=== PATIENT | female | born 1985 | race Caucasian/White ===

== ENCOUNTER 2021-09-06 14:30 | Inpatient (IN) ==
--- NOTE | 2021-09-06 15:25 | Anesthesiology Consultation ---
Date of Service September 06, 2021 Assessment & Plan (1) Encounter for pre-operative examination: Chart Review Chart Review: order entry initiated Per nursing assessment 09/06/2021, patient denies any recent travel. Wears mask in public. No known Covid positive exposures or Covid related symptoms. Did have positive home Covid test 07/18/21 (had sore throat, head cold, fatigue- still has hoarseness). Pt is fully vaccinated for Covid. Preop Covid testing 09/10/21= will await results (if Covid test positive- will need to be treated as PUI/Covid positive since home tests not accepted) Consults Requested none ASA [id number] Proposed Anesthesia Anesthesia Type: Spinal Risk / Benefits Reviewed With: PT / POA / Parent / Guardian, Accepts Plan and Informed Consent Obtained History Surgery Operation Date: 09/13/21 08:55 Proposed Procedures p Repear Section - Malcom Jones MD Height/Weight Height: 5 ft 5 in Weight: 102.058 kg Allergies Allergy/AdvReac Type Severity Reaction Status Date / Time strawberry Allergy Unknown Hives Verified 09/06/21 12:08 Medications Home Medications Medication Instructions Recorded Confirmed Last Taken dextroamphetamine-amphetamine 20 20 mg PO QAM 03/23/20 09/06/21 08/31/20 mg tablet montelukast 10 mg tablet 10 mg PO QAM 03/23/20 09/06/21 Unknown ascorbic acid (vitamin C) 250 mg 250 mg PO BID 09/06/21 09/06/21 Unknown tablet (Vitamin C) calcium 500 mg tablet 500 mg PO QAM 09/06/21 09/06/21 Unknown docusate sodium 100 mg capsule 100 mg PO BID 09/06/21 09/06/21 Unknown (Stool Softener) ferrous fumarate 55 mg PO BID 09/06/21 09/06/21 Unknown fluticasone propionate 44 2 puff INHALATION QAM 09/06/21 09/06/21 Unknown mcg/actuation HFA aerosol inhaler (Flovent HFA) fluticasone propionate 50 2 spray INTRANASAL BID 09/06/21 09/06/21 Unknown mcg/actuation nasal spray,suspension loratadine 10 mg tablet 10 mg PO QPM 09/06/21 09/06/21 Unknown [id number] 1 mg 1 tab PO QAM 09/06/21 09/06/21 Unknown tablet NPO Date Last Intake of Fluids: 09/06/21 Time Last Intake of Fluids: 11:00 Date Last Intake of Solids: 09/06/21 Time Last Intake of Solids: 11:00 Past Medical History Medical History Anemia Asthma Hypertension during F/U APPT QUINTIN ANDRADE 09/06/21 Narcolepsy REASON FOR ADDERALL Temporomandibular joint disorder BILAT -NO LOCKING Exercise / Class Metabolic Activity II 4-5 Yardwork/Stairs/Walk up hill Past Family History Family History Grandfather (Paternal) Family history of diabetes mellitus Past Surgical History Surgical History H/O wisdom tooth extraction History of appendectomy Past Anesthesia History No Hx of Anesthesia Complications and No Family Hx of Anesthesia Complications History of PONV No Hx of PONV and No Hx of Motion Sickness Social History Smoking Status: Former smoker Smoking cigarettes per day: NOT -20 CIGS A DAY-LAST TIME END 12/2020 Do You Dip or Chew Tobacco: No Hx Alcohol Use: Yes (NON STATE) Alcohol type: beer Hx Substance Use: No Physical Exam Vital Signs Last Vital Signs Temp 98.1 F 09/06/21 15:13 Pulse 90 09/06/21 15:36 Resp 20 09/06/21 15:13 BP 131/74 09/06/21 15:36 ENMT Mouth: no dentition abnormality Thyromental Distance: > or= 3.5 Finger Breadths Mallampati Class: II Neck normal visual inspection Respiratory normal respiratory effort Auscultation: lungs clear to auscultation bilaterally Cardiovascular Rate/Rhythm: regular rate and regular rhythm Lab Results Anesthesia Preop Results Results Anesthesia Widget: WBC 16.46 K/uL (4.8-10.8) H 09/06/21 Hgb 12.9 g/dL (12.0-16.0) 09/06/21 Hct 38.8 % (37-47) 09/06/21 Plt 327 K/uL (130-400) 09/06/21 Na 135 mmol/L (136-145) L 01/21/22 K 3.5 mmol/L (3.5-5.1) 08/12/21 Cl 103 mmol/L (98-107) 08/12/21 CO2 23 mmol/L (21-32) 08/12/21 BUN 8 mg/dl (6-23) 08/12/21 Creat 0.50 mg/dl (0.6-1.2) L 08/12/21 Glucose Level 77 mg/dl (70-99(Fasting)) 08/12/21 Urine Color Yellow 08/12/21 Urine Appearance Clear (Clear) 08/12/21 Urine pH 5.0 (4.5-7.5) 08/12/21 Urine Specific Brewster 1.011 (1.000-1.030) 08/12/21 Urine Protein Negative (Negative) 08/12/21 Urine Glucose (UA) Negative (Negative) 08/12/21 Urine Ketones 3+ (Negative) H 08/12/21 Urine Blood Negative (Negative) 08/12/21 Urine Nitrite Negative (Negative) 08/12/21 Urine Bilirubin Negative (Negative) 08/12/21 Urine Urobilinogen Negative (Negative) 08/12/21 Urine Leukocyte Esterase Negative (Negative) 08/12/21 Testing Laboratory Results 09/06/21 15:50 Repeat CBC 08/15/21= WBC: 15.74 (leukocytosis noted since 01/2021 per [facility]) H/H: 12.2/37.3: PLATELETS: 323
--- NOTE | 2021-09-06 15:58 | History & Physical Report ---
Date of Service September 06, 2021 Assessment & Plan (1) Breech presentation: (2) Gestational hypertension without significant proteinuria during in third trimester, antepartum: Admission and Anticipated Discharge Date Admission Date: September 06, 2021 History of Present Illness Chief Complaint: Breech presentation Primary Care Provider: Lester Oneill MD 36 F [id number] at 38.3 weeks admitted to L&D from office for breech presentation and gestational hypertension. Patient denies headache, visual disturbances or any swelling in extremities or face. Had Covid in July. Allergies Allergy/AdvReac Type Severity Reaction Status Date / Time strawberry Allergy Unknown Hives Verified 09/06/21 12:08 Home Medications Medication Instructions Recorded Confirmed Type dextroamphetamine-amphetamine 20 20 mg PO QAM 03/23/20 09/06/21 History mg tablet montelukast 10 mg tablet 10 mg PO QAM 03/23/20 09/06/21 History ascorbic acid (vitamin C) 250 mg 250 mg PO BID 09/06/21 09/06/21 History tablet (Vitamin C) calcium 500 mg tablet 500 mg PO QAM 09/06/21 09/06/21 History docusate sodium 100 mg capsule 100 mg PO BID 09/06/21 09/06/21 History (Stool Softener) ferrous fumarate 55 mg PO BID 09/06/21 09/06/21 History fluticasone propionate 44 2 puff INHALATION QAM 09/06/21 09/06/21 History mcg/actuation HFA aerosol inhaler (Flovent HFA) fluticasone propionate 50 2 spray INTRANASAL BID 09/06/21 09/06/21 History mcg/actuation nasal spray,suspension loratadine 10 mg tablet 10 mg PO QPM 09/06/21 09/06/21 History [id number]-[id number]-As-FA 1 mg 1 tab PO QAM 09/06/21 09/06/21 History tablet Patient History Medical History Anemia Asthma Hypertension during F/U APPT QUINTIN ANDRADE 09/06/21 Narcolepsy REASON FOR ADDERALL Temporomandibular joint disorder BILAT -NO LOCKING Surgical History H/O wisdom tooth extraction History of appendectomy Family History Grandfather (Paternal) Family history of diabetes mellitus Social History Smoking Status: Former smoker Tobacco Type: Cigarettes Cigarettes Per Day: NOT -20 CIGS A DAY-LAST TIME END 12/2020; Second Hand Exposure: No; Do You Dip or Chew Tobacco: No; Hx Alcohol Use: Yes (NON STATE) Alcohol type: beer Hx Substance Use: No Preferred Language: Grenadian Communication Ability: Effective Manager Of Disaster Recovery Required: No Beliefs That Will Affect Care: None marital status: Current Living Situation: Spouse current occupational status: employed Other Information That Helps Us Care for You: No Feels Safe at Home: Yes Safety Concerns: Feels Safe At This Time Assistive Devices: None Assistive Devices Comment: CROWN MOLAR OB History breech HR INTERNSHIP History SAB x1 Review of Systems All systems reviewed & are unremarkable except as noted in HPI & below Physical Exam Constitutional: WD/WN, vitals as above + obese and comfortable Respiratory: normal respiratory effort, lungs clear to auscultation Cardiovascular: RRR, no murmur, no edema Skin: no rashes, warm and dry Neurologic: patellar DTR's 2+ bilat, sensation intact Psychiatric: A+Ox3, euthymic affect Genitourinary: no vaginal lesions, no adnexal mass normal external appearance OB Exam Abdomen: + fundal height and + breech OB Exam Monitor Tracing: + external FHT monitor used, + external uterine monitor used, + category I and + normal FHT variability bedside ultrasound confirms breech presentation Results & Data ([facility]) Vital Signs (Past 12 Hours) Vital Signs Temp Pulse Resp BP 09/06/21 15:36 90 131/74 09/06/21 15:13 36.7 C 20 09/06/21 15:06 88 138/78 09/06/21 15:03 92 H 143/85 H 09/06/21 14:36 103 H 172/102 H Code Status & VTE Plan VTE Prophylaxis Plan VTE Prophylaxis will be ordered: No Monitoring External Monitor Cat 1
[2021-09-06 16:04] LABS: Basophils # (auto) 0.03 K/uL (0-0.2); Basophils % (auto) 0.2 %; Eosinophils % (auto) 0.6 %; Hematocrit (blood only) 38.8 % (37-47); Hemoglobin 12.9 g/dL (12.0-16.0); Immature Granulocytes # (auto) 0.08 K/uL (0.00-0.02); Immature Granulocytes % (auto) 0.5 %; Lymphocytes # (auto) 2.56 K/uL (1.2-3.4); Lymphocytes % (auto) 15.6 %; Mean Corpuscular Hemoglobin 32.1 pg (25-34); Mean Corpuscular Hgb Conc 33.2 g/dL (32-36); Mean Corpuscular Volume 96.5 fL (80-100); Mean Platelet Volume 9.7 fL (7.4-10.4); Monocytes # (auto) 1.01 K/uL (0.11-0.59); Monocytes % (auto) 6.1 %; Neutrophils # (auto) 12.68 K/uL (1.4-6.5); Platelet Count 327 K/uL (130-400); RDW Coefficient of Variation 13.6 % (11.5-14.5); RDW Standard Deviation 48.2 fL (36.4-46.3); Red Blood Count 4.02 M/uL (4.2-5.4); White Blood Count 16.46 K/uL (4.8-10.8)
[2021-09-06] MEDS ORDERED: ONDANSETRON INJ 2 MG/ML 2 ML VIAL ONE (16:13)
[2021-09-06] MEDS ORDERED: KETOROLAC 30 MG/ML VIAL ONE (16:13)
[2021-09-06] MEDS ORDERED: fentaNYL citrate 100 MCG/2 ML VIAL ONE (16:13)
[2021-09-06] MEDS ORDERED: OXYTOCIN 10 UNITS/ML 10ML VIAL ONE ×2 (16:13→17:09)
[2021-09-06] MEDS ORDERED: MoRPHine SULFATE PF 1 MG/ML 10 ML AMP/VIAL ONE (16:13)
[2021-09-06] MEDS ORDERED: CITRIC ACID/SODIUM CITRATE 15 ML UDC ONE (16:18)
[2021-09-06 16:32] LABS: Albumin Globulin Ratio 1.1 (0.9-2); Albumin Level 3.5 gm/dl (3.4-5.0); BUN Creatinine Ratio 18.3 (10-20); Bilirubin,Total 0.2 mg/dl (0.2-1.0); Est GFR (Non-African American) 116.4 ml/min; Globulin 3.1 gm/dl (2.5-4.0); Potassium 4.6 mmol/L (3.5-5.1); Total Protein 6.6 gm/dl (6.0-8.3)
[2021-09-06] MEDS ORDERED: NALOXONE HCL 0.4 MG/1 ML VIAL/CARP IV PRN (17:02)
[2021-09-06] MEDS ORDERED: ONDANSETRON INJ 2 MG/ML 2 ML VIAL IV PRN (17:02)
[2021-09-06] MEDS ORDERED: KETOROLAC 30 MG/ML VIAL IV PRN (17:02)
[2021-09-06] MEDS ORDERED: NALBUPHINE HCL INJ 10 MG/ML AMP IV PRN (17:02)
[2021-09-06] MEDS ORDERED: MoRPHine SULFATE PF 1 MG/ML 10 ML AMP/VIAL INT SPINAL ONE (17:02)
[2021-09-06] MEDS ORDERED: ePHEDrine sulfate 50 MG/ML AMP IV PRN (17:02)
[2021-09-06] MEDS ORDERED: diphenhydrAMINE 50 MG/ML VIAL IV PRN (17:02)
[2021-09-06] MEDS ORDERED: NALOXONE HCL 1 MG in SODIUM CHLORIDE 0.9% 1000ML 1,000 ML IV PRN (17:02)
[2021-09-06] MEDS ORDERED: MEPERIDINE HCL 25 MG/ML CARP/VIAL IV PRN (17:02)
[2021-09-06] MEDS ORDERED: NALOXONE HCL 0.08 MG in SYRINGE 1.8 ML IV PRN (17:02)
[2021-09-06] MEDS ORDERED: LACTATED RINGER'S 500 ML IV PRN (17:02)
[2021-09-06] MEDS ORDERED: NO NARCOTICS OR SEDATIVES SCH (17:15)
[2021-09-06] MEDS ORDERED: SODIUM CHLORIDE 0.9% 1000ML 1,000 ML IV SCH (17:15)
[2021-09-06] MEDS ORDERED: DC INTRASPINAL MORPHINE SCH (17:15)
--- NOTE | 2021-09-06 17:56 | Post Operative Brief Note ---
Immediate Post Op Note v1 Date of Surgery September 06, 2021 Pre & Post Diagnosis Operation Date: 09/06/21 16:45 Pre-Op Diagnosis: Breech Presentation Post-Op Diagnosis: Breech Presentation Operation Date: 09/13/21 08:55 <No data on this case meets the specified criteria> I identified the patient and participated in the time-out.: Yes Procedure Operation Date: 09/06/21 16:45 Actual Procedures p Section in LD; delivery of live female - Malcom Jones MD Operation Date: 09/13/21 08:55 <No data on this case meets the specified criteria> Surgeon Malcom Jones MD [employer] Dr Cerna Estimated Blood Loss 500 Findings Consistent with Post-Op Diagnosis live female Michael breech Apgars Fluids LR 1000 ml Specimens cord blood placenta Drains Groves Catheter Anesthesia Type Spinal Complications none Disposition Accompanied Patient To Recovery: Yes Overlapping Procedure I was present for: the critical portions of procedure. I was immediately available: during the entire case. Back up surgeon: used during listed procedure.
--- NOTE | 2021-09-06 18:55 | Anesthesiology Progress Note ---
Date of Service September 06, 2021 Anesthesia Post Procedure Vital Signs Vital Signs: Temp Pulse Resp BP Pulse Ox 09/06/21 18:53 90 98 09/06/21 18:48 89 100 09/06/21 18:46 90 177/92 H 09/06/21 18:45 16 09/06/21 18:43 91 H 97 09/06/21 18:38 85 100 09/06/21 18:35 83 18 140/75 09/06/21 18:33 93 H 99 09/06/21 18:28 90 96 09/06/21 18:25 89 18 156/81 H 09/06/21 18:23 95 H 96 09/06/21 18:18 94 H 97 09/06/21 18:15 90 18 148/75 H 09/06/21 18:13 95 H 95 09/06/21 18:08 90 96 09/06/21 18:05 93 H 16 165/82 H 93 09/06/21 18:03 89 98 09/06/21 17:58 93 H 98 09/06/21 17:54 97.5 F L 90 16 155/77 H 09/06/21 17:53 92 H 100 09/06/21 15:36 90 131/74 09/06/21 15:13 98.1 F 20 09/06/21 15:06 88 138/78 09/06/21 15:03 92 H 143/85 H 09/06/21 14:36 103 H 172/102 H Transfer of Care Handoff Completed per policy Notes Mental Status: alert / awake / arousable and participated in evaluation Nausea / Vomiting: adequately controlled Pain: adequately controlled Airway Patency, RR, SpO2: stable & adequate BP & HR: stable & adequate Hydration State: stable & adequate Neuraxial Anesthesia: was administered and sensory block is resolving Anesthetic Complications: no major complications apparent and Pt Satisfied with anesthetic care
[2021-09-06] MEDS ORDERED: DIPHTHERIA/TETANUS/PERTUSSIS 0.5 ML SYR/VIAL IM ONE (19:16)
[2021-09-06] MEDS ORDERED: HYDROCORTISONE ACETATE 25 MG SUPP PR PRN (19:16)
[2021-09-06] MEDS ORDERED: BENZOCAINE 20% AER SPR 82.5 GM CAN EXT PRN (19:16)
[2021-09-06] MEDS ORDERED: MAGNESIUM HYDROXIDE SUSP 30 ML UDC PO PRN (19:16)
[2021-09-06] MEDS ORDERED: SENNA 8.6 MG TAB PO PRN (19:16)
[2021-09-06] MEDS ORDERED: LABETALOL HCL IV 5 MG/ML 20ML IV STA (19:42)
[2021-09-06] MEDS ORDERED: LABETALOL HCL IV 5 MG/ML 20ML IV ONE (19:47)
[2021-09-06] MEDS: OXYTOCIN 20 UNITS in LACTATED RINGER'S 1,000 ML IV SCH (19:51)
[2021-09-06] MEDS: ASCORBIC ACID 500 MG TAB PO SCH (20:57)
[2021-09-06] MEDS: DOCUSATE SODIUM 100 MG CAP PO SCH (20:58)
[2021-09-06] MEDS ORDERED: NON-FORMULARY MEDICATION (Ferrous Fumarate 55 mg (18 mg iron) Tablet Extended Release) PO SCH (21:00)
[2021-09-06] MEDS ORDERED: DOCUSATE SODIUM 100 MG CAP PO SCH (21:00)
[2021-09-06] MEDS: FLUTICASONE PROPIONATE NA SPR 16 GM BTL SCH (21:02)
[2021-09-06] MEDS: SIMETHICONE 80 MG CHEW PO SCH (21:03)
[2021-09-06] MEDS: LORATADINE 10 MG TAB PO SCH (22:46)
--- NOTE | 2021-09-06 23:38 | Operative Report (OR) ---
DATE OF SURGERY: 09/06/2021. PREOPERATIVE DIAGNOSES: Breech presentation, 38 weeks and 3 days. The additional diagnosis is gestational hypertension. POSTOPERATIVE DIAGNOSES: Breech presentation, 38 weeks and 3 days. The additional diagnosis is gestational hypertension. PROCEDURE: Primary section, low segment transverse. SURGEON: Malcom Jones MD MEAT CURER: Dr. WASHINGTON. ANESTHESIA: Spinal with Duramorph. ESTIMATED BLOOD LOSS: 500 mL. TOTAL FLUIDS: 1000 mL. DRAINS: Groves. COMPLICATIONS: None. CLINICAL HISTORY: The patient is a 36-year-old female, para 0-0-1-0, at 38 weeks and 3 days, sent over from the office with gestational hypertension and breech at 38 weeks and 3 days. The patient had a bedside ultrasound done by myself confirming breech presentation. The patient was set up for a primary section. She was given the option of a version, but declined. The risks, benefits, and alternatives to the procedure were explained to the patient and consents were signed prior to the start of the procedure and a timeout was called prior to the start of the procedure. DESCRIPTION OF PROCEDURE: Under satisfactory spinal anesthesia, the patient was prepped and draped in the usual sterile fashion. A low Pfannenstiel incision was made entering into the abdominal cavity in successive layers without difficulty. Upon entering into the peritoneal cavity, the uterus was noted to be dextrorotated. The amniotic sac was nicked and there was found to be thin meconium fluid. The infant was in the siria breech presentation, was delivered without incident. The cord was doubly clamped and cut after a 1-minute cord delay delivering a live female. Apgars were 8 and 9. weight was 6 pounds 12 ounces. Cord blood was obtained. Placenta delivered spontaneously and intact. Uterus was then exteriorized. Ring forceps were then placed on both angles and the inferior margin and another ring was used to dilate the cervix. The uterus was then closed in a double layer closure starting with a 0 Vicryl suture in a continuous interlocking fashion followed by 0 Vicryl suture in a continuous fashion. Uterus, tubes, ovaries bilaterally were found to be within normal limits. There was a small paratubal cyst on the left, which was not taken out. The contents of the pelvic and abdominal cavity were then irrigated to clear. Uterus was then placed back into the normal anatomical position. The initial sponge, needle, and instrument counts were found to be correct. The muscle was then reapproximated with several [id number] 0 Vicryl sutures. The fascia was reapproximated from both ends using 0 Vicryl suture in a continuous running fashion. Subcuticular space was irrigated. The fat layer was reapproximated with 2-0 plain suture followed by 4-0 Monocryl for reapproximating the skin. Steri-Strips were applied along with Telfa and dressing. The final sponge, needle and instrument counts were found to be correct. The patient was then placed supine on a stretcher and taken to Recovery Room in stable condition. Please note that Dr. Washington was present for the case for assistance at retraction and delivery of the baby and help with closure of the uterus and abdomen. Job ID: [id number] MTDD
[2021-09-07] MEDS: OXYTOCIN 20 UNITS in LACTATED RINGER'S 1,000 ML IV SCH (04:02)
[2021-09-07] MEDS ORDERED: ceFAZolin 2000MG 2,000 MG/15 ML SYR IV SCH (06:00)
[2021-09-07] MEDS ORDERED: CITRIC ACID/SODIUM CITRATE 15 ML UDC PO SCH (06:00)
--- NOTE | 2021-09-07 07:11 | Obstetrical Progress Note ---
Date of Service September 07, 2021 Assessment & Plan (1) Gestational hypertension without significant proteinuria during in third trimester, antepartum: BP 136/81, continue to monitor (2) Normal course: Continue routine PP course Anticipate d/c home tomorrow or POD3 Subjective Ambulation: limited ambulation Voiding: leach catheter in place Passing Gas:: No Diet Tolerance:: clear liquids Lochia:: Small Feeding Type:: breast feeding Current Pain Level(1-10): 3 Doing well, no concerns at this time Physical Exam Constitutional WD/WN, vitals as above Respiratory normal respiratory effort, lungs clear to auscultation Cardiovascular RRR, no murmur, no edema Gastrointestinal (Abdomen) normal bowel sounds, soft, nontender, no hepatosplenomegaly incision covered by pressure bandage, cleanand dry Results & Data ([facility]) Vital Signs (Past 12 Hours) Vital Signs Temp Pulse Pulse Resp BP BP Pulse Ox 09/07/21 06:30 22 93 09/07/21 05:30 24 91 09/07/21 04:30 22 93 09/07/21 03:30 37.3 C 92 H 20 136/81 92 09/07/21 02:30 20 93 09/07/21 01:30 20 92 09/07/21 00:30 20 92 09/06/21 23:30 37.3 C 80 20 155/76 H 99 09/06/21 22:20 36.6 C 81 20 146/77 H 99 09/06/21 22:03 86 99 09/06/21 22:02 81 146/77 H 09/06/21 21:58 91 H 100 09/06/21 21:53 85 98 09/06/21 21:48 86 98 09/06/21 21:43 81 99 09/06/21 21:38 88 100 09/06/21 21:35 84 142/71 H 09/06/21 21:33 94 H 97 09/06/21 21:31 83 141/68 H 09/06/21 21:28 87 98 09/06/21 21:25 92 H 168/84 H 78 L 09/06/21 21:23 86 98 09/06/21 21:19 36.6 C 20 09/06/21 21:18 85 100 09/06/21 21:15 80 154/83 H 09/06/21 21:13 83 91 09/06/21 21:08 84 99 09/06/21 21:05 83 151/83 H 09/06/21 21:03 92 H 100 09/06/21 20:58 84 99 09/06/21 20:56 81 85 L 09/06/21 20:55 83 147/82 H 09/06/21 20:53 89 100 09/06/21 20:48 84 100 09/06/21 20:45 81 152/84 H 09/06/21 20:43 86 99 09/06/21 20:38 85 100 09/06/21 20:35 78 148/80 H 09/06/21 20:33 82 99 09/06/21 20:28 82 100 09/06/21 20:25 82 143/86 H 09/06/21 20:23 87 99 09/06/21 20:18 82 99 09/06/21 20:17 79 135/76 09/06/21 20:16 82 165/75 H 09/06/21 20:13 84 96 09/06/21 20:08 87 95 09/06/21 20:05 74 145/80 H 09/06/21 20:03 81 98 09/06/21 19:58 81 98 09/06/21 19:55 82 20 140/78 09/06/21 19:53 80 100 09/06/21 19:48 83 99 09/06/21 19:45 74 154/87 H 09/06/21 19:43 80 99 09/06/21 19:38 80 91 09/06/21 19:35 77 161/91 H 09/06/21 19:33 86 99 09/06/21 19:32 79 86 L 09/06/21 19:28 82 96 09/06/21 19:26 80 82 L 09/06/21 19:25 77 20 163/92 H 09/06/21 19:23 92 H 99 09/06/21 19:18 92 H 100 09/06/21 19:15 85 169/90 H 09/06/21 19:13 90 100
[2021-09-07 07:42] LABS: Hematocrit (blood only) 33.3 % (37-47); Hemoglobin 11.3 g/dL (12.0-16.0); Mean Corpuscular Hemoglobin 32.8 pg (25-34); Mean Corpuscular Hgb Conc 33.9 g/dL (32-36); Mean Corpuscular Volume 96.8 fL (80-100); Mean Platelet Volume 9.4 fL (7.4-10.4); Platelet Count 282 K/uL (130-400); RDW Coefficient of Variation 13.8 % (11.5-14.5); RDW Standard Deviation 48.7 fL (36.4-46.3); Red Blood Count 3.44 M/uL (4.2-5.4); White Blood Count 15.75 K/uL (4.8-10.8)
[2021-09-07 08:07] LABS: Basophils # (auto) 0.02 K/uL (0-0.2); Basophils % (auto) 0.1 %; Eosinophils # (auto) 0.04 K/uL (0-0.5); Eosinophils % (auto) 0.3 %; Immature Granulocytes # (auto) 0.04 K/uL (0.00-0.02); Immature Granulocytes % (auto) 0.3 %; Lymphocytes # (auto) 2.31 K/uL (1.2-3.4); Lymphocytes % (auto) 14.7 %; Monocytes # (auto) 1.18 K/uL (0.11-0.59); Monocytes % (auto) 7.5 %; Neutrophils # (auto) 12.16 K/uL (1.4-6.5); Neutrophils % (auto) 77.1 %
[2021-09-07] MEDS: DOCUSATE SODIUM 100 MG CAP PO SCH ×2 (08:52→19:55)
[2021-09-07] MEDS: SIMETHICONE 80 MG CHEW PO SCH ×4 (08:52→20:50)
[2021-09-07] MEDS: FERROUS SULFATE 325 MG TAB PO SCH (08:52)
[2021-09-07] MEDS: PRENATAL VITAMIN 1 TAB PO SCH (08:52)
[2021-09-07] MEDS: CALCIUM CARBONATE 1250MG TAB PO SCH (08:53)
[2021-09-07] MEDS: ASCORBIC ACID 500 MG TAB PO SCH ×2 (08:53→19:49)
[2021-09-07] MEDS: FLUTICASONE PROPIONATE NA SPR 16 GM BTL SCH ×2 (08:54→19:51)
[2021-09-07] MEDS ORDERED: NON-FORMULARY MEDICATION (Prenatal Multivit-Min-Fe-Fa 1 mg Tablet) PO SCH (09:00)
[2021-09-07] MEDS ORDERED: Nursing to Pharmacy Communication SCH (10:15)
[2021-09-07] MEDS: MONTELUKAST SODIUM 10 MG TABLET PO SCH ×2 (10:33→19:50)
[2021-09-07] MEDS ORDERED: ONDANSETRON INJ 2 MG/ML 2 ML VIAL IV PRN (11:02)
[2021-09-07] MEDS ORDERED: PROMETHAZINE HCL 25 MG in SODIUM CHLORIDE 0.9% 50 ML IV PRN (11:02)
[2021-09-07] MEDS ORDERED: MEPERIDINE HCL 50 MG/ML CARP IV PRN (11:02)
[2021-09-07] MEDS ORDERED: diphenhydrAMINE Capsule 25 MG CAP PO PRN (11:02)
[2021-09-07] MEDS ORDERED: KETOROLAC 30 MG/ML VIAL IV PRN (11:02)
[2021-09-07] MEDS ORDERED: diphenhydrAMINE 50 MG/ML VIAL IV PRN (11:02)
[2021-09-07] MEDS: IBUPROFEN 600 MG TAB PO PRN ×2 (12:38→19:52)
[2021-09-07] MEDS: AMPHETAMINE ASP/SULF/DEXTRAMPH 20 MG TAB PO SCH (12:38)
[2021-09-07] MEDS: oxyCODONE/ACETAMINOPHEN 5mg/325mg TAB PO PRN ×2 (12:38→19:52)
[2021-09-07] MEDS: FLUTICASONE PROP HFA INH 44 MCG INHALER INH SCH (13:22)
[2021-09-07] MEDS: LORATADINE 10 MG TAB PO SCH (19:49)
[2021-09-07] MEDS ORDERED: bisacodyL 5 MG TABEC PO SCH (20:00)
[2021-09-07] MEDS ORDERED: MAG SULFATE 4GM BOLUS FROM BAG IV ONE (20:57)
[2021-09-07] MEDS ORDERED: LABETALOL HCL IV 5 MG/ML 20ML IV STA (20:57)
[2021-09-07] MEDS ORDERED: MONTELUKAST SODIUM 10 MG TABLET PO SCH (21:00)
--- NOTE | 2021-09-07 21:00 | Progress Note ---
Date of Service September 07, 2021 Assessment & Plan (1) Pre-eclampsia, severe, delivered: Plan: IV labetalol 10mg IV now Start Mag sulfate 4gr bolus, 2gr hr Repeat labs in AM Admission and Anticipated Discharge Date Admission Date: September 06, 2021 Subjective Called fur multiple sever range BP, last BP 174/100 Results & Data ([facility]) Vital Signs (Past 12 Hours) Vital Signs Temp Pulse Pulse Resp BP BP Pulse Ox 09/07/21 20:49 98 H 174/100 H 09/07/21 19:55 36.6 C 101 H 20 166/96 H 97 09/07/21 15:18 36.8 C 98 H 16 138/87 98 09/07/21 15:04 36.8 C 98 H 18 152/93 H 98 09/07/21 12:30 37.4 C 98 H 18 149/87 H 96 09/07/21 10:30 18 95 09/07/21 09:30 16 96
[2021-09-07] MEDS: LACTATED RINGER'S 1,000 ML IV SCH (21:41)
[2021-09-07] MEDS: MAGNESIUM SULFATE / WTR 40 GM/1,000 ML BAG IV SCH (22:20)
[2021-09-08] MEDS: oxyCODONE/ACETAMINOPHEN 5mg/325mg TAB PO PRN ×2 (05:25→14:54)
[2021-09-08] MEDS: IBUPROFEN 600 MG TAB PO PRN ×2 (05:25→16:30)
[2021-09-08 05:56] LABS: Hemoglobin 11.1 g/dL (12.0-16.0); Mean Corpuscular Hemoglobin 31.7 pg (25-34); Mean Corpuscular Hgb Conc 32.6 g/dL (32-36); Mean Corpuscular Volume 97.1 fL (80-100); Mean Platelet Volume 9.3 fL (7.4-10.4); Platelet Count 298 K/uL (130-400); RDW Standard Deviation 49.6 fL (36.4-46.3); White Blood Count 14.85 K/uL (4.8-10.8)
[2021-09-08 06:27] LABS: Albumin Globulin Ratio 1.1 (0.9-2); BUN Creatinine Ratio 10.3 (10-20); Bilirubin,Total 0.2 mg/dl (0.2-1.0); Calcium 8.1 mg/dl (8.5-10.1); Creatinine Clr Calc Pharmacy 157.3 ml/min; Est GFR (African American) 136.5 ml/min; Est GFR (Non-African American) 117.8 ml/min; Globulin 2.8 gm/dl (2.5-4.0); Magnesium 4.1 mg/dl (1.7-2.4); Potassium 3.7 mmol/L (3.5-5.1); Total Protein 5.8 gm/dl (6.0-8.3)
[2021-09-08] MEDS: LABETALOL HCL 100 MG TAB PO SCH ×2 (07:47→19:33)
--- NOTE | 2021-09-08 07:50 | Obstetrical Progress Note ---
Date of Service September 08, 2021 Assessment & Plan Admission and Anticipated Discharge Date Admission Date: September 06, 2021 Subjective Patient is seen and examined. She feels well, no complaints. Pain is under control with oral meds. Ambulated yesterday without dizziness then was started on IV magnesium at 2100 last night. Groves catheter is in. Tolerating regular diet with out N&V Flatus + BM neg Bleeding is minimal No BURNETTE/ Change in vision/ fever/ chills/ CP/ SOB/ N&V/ Leg pain Breast feeding without problems Vital Signs Temp Pulse Resp BP Pulse Ox 09/08/21 05:45 157/91 H 09/08/21 05:26 98 H 18 161/97 H 95 09/08/21 04:00 36.6 C 84 18 153/95 H 09/08/21 03:01 87 20 141/79 H 94 09/08/21 02:07 20 149/92 H 09/08/21 01:31 86 20 117/83 91 09/08/21 01:00 21 126/84 09/08/21 00:30 18 144/88 H 09/08/21 00:04 14 153/104 H 09/07/21 23:30 14 152/90 H 09/07/21 23:15 153/98 H 09/07/21 23:04 24 156/85 H 09/07/21 22:47 22 148/83 H 09/07/21 22:30 24 141/91 H 09/07/21 22:22 89 20 143/87 H 95 09/07/21 22:20 92 H 20 146/90 H 95 09/07/21 22:14 94 H 14 148/92 H 95 09/07/21 22:07 94 H 14 141/85 H 93 09/07/21 21:57 91 H 14 143/84 H 09/07/21 21:54 99 H 16 169/98 H 14 L 09/07/21 21:32 36.5 C 98 H 14 163/96 H 95 09/07/21 20:49 98 H 174/100 H 09/07/21 19:55 36.6 C 101 H 20 166/96 H 97 Lab Results 09/06/21 09/06/21 09/07/21 Range/Units 15:50 15:50 07:26 WBC 16.46 H (4.8-10.8) K/uL RBC 4.02 L (4.2-5.4) M/uL Hgb 12.9 (12.0-16.0) g/dL Hct 38.8 (37-47) % MCV 96.5 (80-100) fL MCH 32.1 (25-34) pg MCHC 33.2 (32-36) g/dL RDW Std Deviation 48.2 H (36.4-46.3) fL RDW Coeff of Jack 13.6 (11.5-14.5) % Plt Count 327 (130-400) K/uL MPV 9.7 (7.4-10.4) fL Immature Gran % (Auto) 0.5 % Neut % (Auto) 77.0 % Lymph % (Auto) 15.6 % Bailey % (Auto) 6.1 % Eos % (Auto) 0.6 % Baso % (Auto) 0.2 % Neut # (Auto) 12.68 H (1.4-6.5) K/uL Lymph # (Auto) 2.56 (1.2-3.4) K/uL Bailey # (Auto) 1.01 H (0.11-0.59) K/uL Eos # (Auto) 0.10 (0-0.5) K/uL Baso # (Auto) 0.03 (0-0.2) K/uL Immature Gran # (Auto) 0.08 H (0.00-0.02) K/uL Sodium 136 (136-145) mmol/L Potassium 4.6 (3.5-5.1) mmol/L Chloride 105 (98-107) mmol/L Carbon Dioxide 22 (21-32) mmol/L Anion Gap 9 (3-11) BUN 11 (6-23) mg/dl Creatinine 0.60 (0.6-1.2) mg/dl Est Cr Clr Drug Dosing 152.0 ml/min Est GFR ( Amer) 135.0 ml/min Est GFR (Non-Af Amer) 116.4 ml/min BUN/Creatinine Ratio 18.3 (10-20) Glucose 71 (70-99(Fasting)) mg/dl Calcium 9.0 (8.5-10.1) mg/dl Magnesium (1.7-2.4) mg/dl Total Bilirubin 0.2 (0.2-1.0) mg/dl Direct Bilirubin 0.0 (0-0.2) mg/dl AST 19 (13-39) U/L ALT 16 (7-52) U/L Alkaline Phosphatase 112 H (34-104) U/L Total Protein 6.6 (6.0-8.3) gm/dl Albumin 3.5 (3.4-5.0) gm/dl Globulin 3.1 (2.5-4.0) gm/dl Albumin/Globulin Ratio 1.1 (0.9-2) Blood Type A Negative Antibody Screen NEGATIVE Screen Negative (Negative) 09/07/21 09/08/21 09/08/21 Range/Units 07:26 05:30 05:30 WBC 15.75 H 14.85 H (4.8-10.8) K/uL RBC 3.44 L 3.50 L (4.2-5.4) M/uL Hgb 11.3 L 11.1 L (12.0-16.0) g/dL Hct 33.3 L 34.0 L (37-47) % MCV 96.8 97.1 (80-100) fL MCH 32.8 31.7 (25-34) pg MCHC 33.9 32.6 (32-36) g/dL RDW Std Deviation 48.7 H 49.6 H (36.4-46.3) fL RDW Coeff of Jack 13.8 14.0 (11.5-14.5) % Plt Count 282 298 (130-400) K/uL MPV 9.4 9.3 (7.4-10.4) fL Immature Gran % (Auto) 0.3 % Neut % (Auto) 77.1 % Lymph % (Auto) 14.7 % Bailey % (Auto) 7.5 % Eos % (Auto) 0.3 % Baso % (Auto) 0.1 % Neut # (Auto) 12.16 H (1.4-6.5) K/uL Lymph # (Auto) 2.31 (1.2-3.4) K/uL Bailey # (Auto) 1.18 H (0.11-0.59) K/uL Eos # (Auto) 0.04 (0-0.5) K/uL Baso # (Auto) 0.02 (0-0.2) K/uL Immature Gran # (Auto) 0.04 H (0.00-0.02) K/uL Sodium 137 (136-145) mmol/L Potassium 3.7 (3.5-5.1) mmol/L Chloride 104 (98-107) mmol/L Carbon Dioxide 27 (21-32) mmol/L Anion Gap 6 (3-11) BUN 6 (6-23) mg/dl Creatinine 0.58 L (0.6-1.2) mg/dl Est Cr Clr Drug Dosing 157.3 ml/min Est GFR ( Amer) 136.5 ml/min Est GFR (Non-Af Amer) 117.8 ml/min BUN/Creatinine Ratio 10.3 (10-20) Glucose 102 H (70-99(Fasting)) mg/dl Calcium 8.1 L (8.5-10.1) mg/dl Magnesium 4.1 H (1.7-2.4) mg/dl Total Bilirubin 0.2 (0.2-1.0) mg/dl Direct Bilirubin (0-0.2) mg/dl AST 24 (13-39) U/L ALT 15 (7-52) U/L Alkaline Phosphatase 92 (34-104) U/L Total Protein 5.8 L (6.0-8.3) gm/dl Albumin 3.0 L (3.4-5.0) gm/dl Globulin 2.8 (2.5-4.0) gm/dl Albumin/Globulin Ratio 1.1 (0.9-2) Blood Type Antibody Screen Screen (Negative) Intake & Output 09/07/21 09/08/21 09/08/21 22:59 06:59 14:59 Intake Total 110.333 / 2610.333 447.5 / 447.5 Output Total 550 / 5625 2525 / 5625 Balance -439.667 / -3014.667 -2525 / -3014.667 447.5 / 447.5 Intake: IV 108.333 / 108.333 447.5 / 447.5 Lactated Ringer's 1,000 ml @ 108.333 / 108.333 125 mls/hr IV .Q8H [facility] Rx#: [id number] Magnesium Sulfate / Wtr 40 gm 447.5 / 447.5 In 1,000 ml @ 50 mls/hr IV . Q20H [facility] Rx#:[id number] Intake (Blood Product) Amt Rho D Immune Globulin Unit [id number] Output: Urine 550 / 700 Urine Amount (Catheter) 550 / 4925 1974 [place]/Indwelling 550 / 4925 1974 PE: General: Alert, orientedx3, NAD CVS: S1S2 RRR Lungs; CTAB Abd: soft, NT, ND, BS+, fundus firm, below Umbilicus Incision: Clean, dry, intact Perineum intact, Lochia rubra minimal Ext; NT, no edema, SCD's on, No clonus, DTR 1+/1+ AP: 36 yo s/p C Section for breech, pod# 2, started on IV Mag for severe range BP, h/o CHTN VSS Afebrile doing well, no s/s of magnesium toxicity Start on PO Labetalol Continue to monitor closely d/c mag at 2100 tonight Encourage ambulation then, PO intake All questions were answered Results & Data ([facility]) Vital Signs (Past 12 Hours) Vital Signs Temp Pulse Resp BP Pulse Ox 09/08/21 05:45 157/91 H 09/08/21 05:26 98 H 18 161/97 H 95 09/08/21 04:00 36.6 C 84 18 153/95 H 09/08/21 03:01 87 20 141/79 H 94 09/08/21 02:07 20 149/92 H 09/08/21 01:31 86 20 117/83 91 09/08/21 01:00 21 126/84 09/08/21 00:30 18 144/88 H 09/08/21 00:04 14 153/104 H 09/07/21 23:30 14 152/90 H 09/07/21 23:15 153/98 H 09/07/21 23:04 24 156/85 H 09/07/21 22:47 22 148/83 H 09/07/21 22:30 24 141/91 H 09/07/21 22:22 89 20 143/87 H 95 09/07/21 22:20 92 H 20 146/90 H 95 09/07/21 22:14 94 H 14 148/92 H 95 09/07/21 22:07 94 H 14 141/85 H 93 09/07/21 21:57 91 H 14 143/84 H 09/07/21 21:54 99 H 16 169/98 H 14 L 09/07/21 21:32 36.5 C 98 H 14 163/96 H 95 09/07/21 20:49 98 H 174/100 H 09/07/21 19:55 36.6 C 101 H 20 166/96 H 97
[2021-09-08] MEDS: FERROUS SULFATE 325 MG TAB PO SCH (08:04)
[2021-09-08] MEDS: SIMETHICONE 80 MG CHEW PO SCH ×3 (08:04→19:35)
[2021-09-08] MEDS: PRENATAL VITAMIN 1 TAB PO SCH (08:04)
[2021-09-08] MEDS: DOCUSATE SODIUM 100 MG CAP PO SCH ×2 (08:04→19:35)
[2021-09-08] MEDS: CALCIUM CARBONATE 1250MG TAB PO SCH (09:44)
[2021-09-08] MEDS: ASCORBIC ACID 500 MG TAB PO SCH ×2 (09:44→19:34)
[2021-09-08] MEDS: AMPHETAMINE ASP/SULF/DEXTRAMPH 20 MG TAB PO SCH (09:55)
[2021-09-08] MEDS: LACTATED RINGER'S 1,000 ML IV SCH (11:43)
[2021-09-08] MEDS: MAGNESIUM SULFATE / WTR 40 GM/1,000 ML BAG IV SCH (13:08)
[2021-09-08] MEDS: FLUTICASONE PROPIONATE NA SPR 16 GM BTL SCH ×2 (14:00→19:35)
[2021-09-08] MEDS: FLUTICASONE PROP HFA INH 44 MCG INHALER INH SCH (14:00)
[2021-09-08] MEDS ORDERED: bisacodyL 10 MG SUPP PR PRN (18:01)
[2021-09-08] MEDS: LORATADINE 10 MG TAB PO SCH (19:35)
[2021-09-09] MEDS: oxyCODONE/ACETAMINOPHEN 5mg/325mg TAB PO PRN ×2 (05:10→12:46)
[2021-09-09] MEDS: IBUPROFEN 600 MG TAB PO PRN ×2 (05:11→12:46)
[2021-09-09] MEDS: LABETALOL HCL 100 MG TAB PO SCH (08:19)
[2021-09-09] MEDS: SIMETHICONE 80 MG CHEW PO SCH ×2 (08:19→12:46)
[2021-09-09] MEDS: PRENATAL VITAMIN 1 TAB PO SCH (08:19)
[2021-09-09] MEDS: CALCIUM CARBONATE 1250MG TAB PO SCH (08:19)
[2021-09-09] MEDS: DOCUSATE SODIUM 100 MG CAP PO SCH (08:19)
[2021-09-09] MEDS: FERROUS SULFATE 325 MG TAB PO SCH (08:19)
[2021-09-09] MEDS: MONTELUKAST SODIUM 10 MG TABLET PO SCH (08:19)
[2021-09-09] MEDS: ASCORBIC ACID 500 MG TAB PO SCH (08:20)
[2021-09-09] MEDS: FLUTICASONE PROP HFA INH 44 MCG INHALER INH SCH (08:21)
[2021-09-09] MEDS: FLUTICASONE PROPIONATE NA SPR 16 GM BTL SCH (08:21)
--- NOTE | 2021-09-09 08:38 | Obstetrical Progress Note ---
Date of Service September 09, 2021 Subjective Ambulation: ambulating normally Voiding: no voiding problems Passing Gas:: Yes Diet Tolerance:: regular diet Lochia:: Small Feeding Type:: breast feeding Current Pain Level(1-10): 0 doing well plans for d/c Physical Exam Constitutional WD/WN, vitals as above comfortable incision c/d/i abdomen soft and non-tender no edema neg Yaz's for d/c today Results & Data ([facility]) Vital Signs (Past 12 Hours) Vital Signs Temp Pulse Resp BP Pulse Ox 09/09/21 05:12 84 16 157/83 H 95 09/08/21 23:21 36.7 C 88 16 147/88 H 96 09/08/21 22:01 92 H 20 154/87 H 97 09/08/21 22:00 16 09/08/21 21:30 135/96
[2021-09-09] MEDS: AMPHETAMINE ASP/SULF/DEXTRAMPH 20 MG TAB PO SCH (09:33)
--- NOTE | 2021-09-15 23:41 | Discharge Summary (DS) ---
DATE OF ADMISSION: 09/06/2021 DATE OF DISCHARGE: 09/09/2021 REASON FOR ADMISSION AND HOSPITAL COURSE: The patient is a 36-year-old female, para 0-0-1-0, at 38 w eeks and 3 days, sent over from the office for gestational hypertension and breech presentation. The patient was confirmed breech using bedside ultrasound. The patient was then set up for a s ection, which was done under spinal anesthesia, delivering a live female, Apgars were 8 and 9. weight was 6 pounds 12 ounces. Hospital course was uncomplicated. The patient was subsequently discharged home in stable condition. Home going instructions were given . Condition on discharge was stable. Regular diet on discharge. Medications include Percocet and M otrin, and followup will be in the office in 1 week for an incision check. Job ID: [id number]
== END 2021-09-09 15:35 | disposition home or self-care (01) | DRG 787 ==
LOC: 4S1 14:30 → 4S2 22:21 → EDSTATUS 09-13 08:55
DX: J45.909 Unspecified asthma, uncomplicated; Z79.51 Long term (current) use of inhaled steroids; O99.52 Diseases of the respiratory system complicating childbirth; Z3A.38 38 weeks gestation of pregnancy; Z91.018 Allergy to other foods; O99.02 Anemia complicating childbirth; O77.0 Labor and delivery complicated by meconium in amniotic fluid; Z87.891 Personal history of nicotine dependence; D64.9 Anemia, unspecified; Z86.16 Personal history of COVID-19; Z37.0 Single live birth; O32.1XX0 Maternal care for breech presentation, not applicable or unspecified; O99.354 Diseases of the nervous system complicating childbirth; G47.419 Narcolepsy without cataplexy; Z79.899 Other long term (current) drug therapy; O13.4 Gestational [pregnancy-induced] hypertension without significant proteinuria, complicating childbirth; O14.15 Severe pre-eclampsia, complicating the puerperium